=== PATIENT | male | born 2000 | race Caucasian/White ===

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

== ENCOUNTER 2022-01-10 11:21 | Emergency (ER) | payer SELFPAY ==
[2022-01-10 11:22] VITALS: BP 128/80; PULSE 78; RESP 18; TEMP 36.6; O2SAT 98; BMI 31.5
[2022-01-10 12:00] VITALS: BP 128/80; PULSE 78; RESP 18; TEMP 36.6; O2SAT 98
[2022-01-10] MEDS: 0.9% Normal Saline 1,000 ML 1000 ML IV (12:22)
[2022-01-10] MEDS: Cefazolin 1 GM/50 ML BAG IV (12:22)
--- NOTE | 2022-01-10 12:22 | EDS_ITS ---
HPI History of Present Illness Chief Complaint: Cellulitis Informant: patient Onset/Context/Timing Onset: Days (3) Context: Gradual Onset Timing: Continuous Quality: Redness, swelling Location: Right foot and ankle Worsened by: Weightbearing, pressure Relieved by: Nothing Narrative Narrative: Patient presents with redness and swelling to his right foot and ankle that has been getting worse over the last 3 days. Patient went to urgent care today and was referred to the emergency department. Patient states the redness is starting to spread up his ankle and then over to his left ankle. Patient does not remember any trauma or injury. Patient states the redness and swelling started over the medial aspect of the right first MTP joint area. Patient denies any discharge or drainage. Patient denies any fevers or chills. PFSH PFSH Medical History no medical history no medical history Home Medications lisdexamfetamine 40 mg capsule 40 mg PO DAILY 10/23/17 [History Last Taken Unknown] cephalexin 500 mg capsule 500 mg PO Q6 #40 CAPSULES 01/10/22 [Rx Last Taken Unknown] Allergy/AdvReac Type Severity Reaction Status Date / Time No Known Allergies Allergy Verified 01/10/22 11:21 Social History Smoking Status: Never smoker ROS ROS ED Constitutional Constitutional ED: Denies chills or fever(s) Eyes Eyes: Denies blurry vision or change in vision ENT ENT ED: Denies rhinorrhea or sore throat Cardiovascular Cardiovascular: Denies chest pain or palpitations Respiratory/Chest Respiratory/Chest: Denies cough or dyspnea Gastrointestinal Gastrointestinal: Denies nausea or vomiting Genitourinary Genitourinary ED: Denies dysuria or hematuria Musculoskeletal Musculoskeletal: Denies back pain or neck pain Integumentary Reports rash; Denies abscess Neurologic Neurologic: Denies headache(s) or weakness Allergic/Immunologic Allergic/Immunologic ED: Denies mouth swelling or urticaria EXAM Physical Exam Const Vital Signs: 01/10/22 11:22 01/10/22 12:00 Temperature 97.8 F 97.8 F Temperature Source Temporal Temporal Pulse Rate 78 78 Respiratory Rate 18 18 Blood Pressure 128/80 H 128/80 H Blood Pressure Mean 96 96 Pulse Ox 98 98 Oxygen Delivery Method Room Air Room Air Positive well nourished and well developed General Appearance ED: well developed and NAD HEENT Reports moist mucous membranes Neck supple and no JVD Neuro oriented x3, CN's II-XII intact bilaterally and no sensory deficits noted Sensorium / Orientation: alert Motor Exam: strength 5/5 throughout Psych mental status grossly normal Skin Skin Narrative: There is erythema and warmth over the medial aspect of the right foot and ankle. There are no vesicles or pustules noted. There is no fluctuance. There is no discharge or drainage. There is also mild erythema and warmth of the medial aspect of the left ankle. Pedal pulses are equal bilaterally. Sensation was intact to light touch in all digits. Capillary refill was less than 2 seconds in all digits. There is full range of motion of the ankles bilaterally. MDM MDM MDM Narrative Medical decision making narrative: Patient was given IV fluids. Blood cultures were obtained. Patient was given a dose of Ancef. CBC shows a mild leukocytosis of 13.7. Basic metabolic profile was within normal limits. Patient is feeling better on reevaluation. Patient was given a prescription for Keflex. Patient was instructed to take Tylenol or ibuprofen as needed for any fevers. Patient was instructed to follow-up with his primary care physician in 5 to 7 days. Patient understood and was agreeable with the plan. All questions were answered. Lab Data Attestation: I reviewed the patient's lab results. Labs: Laboratory Results - last 24 hr 01/10/22 01/10/22 12:00 12:00 WBC 13.7 H RBC 5.27 Hgb 14.9 Hct 44.6 MCV 84.6 MCH 28.3 MCHC 33.4 RDW Std Deviation 41.6 RDW Coeff of Joan 13.4 Plt Count 219 MPV 11.9 Immature Gran % (Auto) 0.400 Neut % (Auto) 87.6 H Lymph % (Auto) 5.0 L [place] % (Auto) 5.2 Eos % (Auto) 1.5 Baso % (Auto) 0.3 Absolute Neuts (auto) 12.0 H Absolute Lymphs (auto) 0.69 L Nucleated RBC % 0 Sodium 137 Potassium 3.6 Chloride 102 Carbon Dioxide 27.0 Anion Gap 8 BUN 18 Creatinine 0.93 Estim Creat Clear Calc 130.82 Est GFR (MDRD) Af Amer 133 Est GFR (MDRD) Non-Af 110 BUN/Creatinine Ratio 19.4 Glucose 92 Calcium 8.6 Discharge Plan Triage Chief Complaint: Cellulitis ED Provider: Aaron Craven Dx/Rx/DC Orders Clinical Impression: Cellulitis Instructions: ED Cellulitis Prescriptions: New cephalexin [cephalexin] 500 mg capsule 500 mg PO Q6 Qty: 40 0RF No Action lisdexamfetamine 40 MG capsule 40 mg PO DAILY Primary Care Provider: Jacques Caraballo Referrals: Jacques Caraballo DO [Primary Care Provider] - 3-5 Days Disposition Disposition: Home, Self Care
[2022-01-10 12:39] LABS: Absolute Lymphocyte Count 0.69 X10^3/uL (0.83-4.51); Basophil# 0.04 X10^3/uL; Basophil% 0.3 % (0-1); Eosinophils% 1.5 % (0-5); Hematocrit 44.6 % (40-54); Hemoglobin 14.9 g/dL (13.0-16.5); Lymphocyte # 0.69 X10^3/ul (0.83-4.51); Mean Corp Hgb Conc 33.4 g/dL (32-36); Mean Corpuscular Hgb 28.3 pg (27.0-32.0); Mean Corpuscular Volume 84.6 fL (80-94); Mean Platelet Vol. 11.9 fl (6.2-12.0); Monocyte# 0.71 X10^3/uL; Monocyte% 5.2 % (0-10); NRBC Flagged by Analyzer 0 % (0-5); Neutrophil # 11.98 X10^3/uL (2.7-7.7); Neutrophil % 87.6 % (47-70); Platelet Count 219 K/mm3 (150-450); RBC Distribution Width CV 13.4 % (11.6-14.6); RBC Distribution Width SD 41.6 fl (35.1-43.9); Red Blood Count 5.27 M/mm3 (4.6-6.2); White Blood Count 13.7 K/mm3 (4.4-11.0)
[2022-01-10 12:48] LABS: Anion Gap 8 (5-15); BUN 18 mg/dL (7-18); BUN/Creat Ratio 19.4 RATIO (10-20); Calcium,Total 8.6 mg/dL (8.5-10.1); Chloride 102 mmol/L (98-107); Creatinine, Serum 0.93 mg/dL (0.70-1.30); EST Glomerular Filtration Rate 110 mL/min (>60); Est Glom Filt Rate - Afr Amer 133 mL/min (>60); Estimated Creatinine Clearance 130.82 ml/min; Glucose 92 mg/dL (74-106); Potassium 3.6 mmol/L (3.5-5.1); Sodium Level 137 mmol/L (136-145)
== END 2022-01-10 14:14 | disposition home or self-care (01) ==
PROVIDERS: Emergency Provider Emergency Medicine; PCP Student in an Organized Health Care Education/Training Program; Visit Provider Emergency Medicine
DX: L03.90 Cellulitis, unspecified (principal); M79.89 Other specified soft tissue disorders
CPT/HCPCS: 80048; 85025; 87040; 96365; 96366; 99283; J7030; A4216

== ENCOUNTER → 2023-07-25 | Outpatient (CLI) | payer BC, SELFPAY ==
[2023-07-25 15:48] LABS: Absolute Lymphocyte Count 2.38 X10^3/uL (0.83-4.51); Basophil# 0.05 X10^3/uL; Basophil% 0.6 % (0-1); Eosinophil# 0.09 X10^3/uL; Hematocrit 45.2 % (40-54); Hemoglobin 14.9 g/dL (13.0-16.5); Lymphocyte # 2.38 X10^3/ul (0.83-4.51); Lymphocyte % 27.7 % (19-41); Mean Platelet Vol. 12.1 fl (6.2-12.0); Monocyte# 1.01 X10^3/uL; Monocyte% 11.8 % (0-10); NRBC Flagged by Analyzer 0 % (0-5); Neutrophil # 5.03 X10^3/uL (2.7-7.7); Neutrophil % 58.7 % (47-70); Platelet Count 237 K/mm3 (150-450); RBC Distribution Width CV 12.7 % (11.6-14.6); RBC Distribution Width SD 38.7 fl (35.1-43.9); Red Blood Count 5.32 M/mm3 (4.6-6.2); White Blood Count 8.6 K/mm3 (4.4-11.0)
[2023-07-25 19:30] LABS: Anion Gap 5 (5-15); BUN 19 mg/dL (7-18); BUN/Creat Ratio 17.8 RATIO (10-20); Calcium,Total 9.6 mg/dL (8.5-10.1); Chloride 103 mmol/L (98-107); Creatinine, Serum 1.07 mg/dL (0.70-1.30); EST Glomerular Filtration Rate 92 mL/min (>60); Est Glom Filt Rate - Afr Amer 112 mL/min (>60); Glucose 93 mg/dL (74-106); Sodium Level 138 mmol/L (136-145)
== END | disposition home or self-care (01) ==
LOC: LAB 14:25
PROVIDERS: PCP Student in an Organized Health Care Education/Training Program; Referring Provider Physician Assistant Surgical; Visit Provider Physician Assistant Surgical
DX: Z01.818 Encounter for other preprocedural examination (principal)
CPT/HCPCS: 36415; 80048; 85025